=== PATIENT | male | born 2000 | race American Indian/Alaskan Native ===

== ENCOUNTER 2018-02-09 18:49 | Emergency (ER) | payer MEDICAID, OTHER ==
[2018-02-09 19:10] VITALS: BP 113/70
[2018-02-09] MEDS ORDERED: Acetaminophen/HYDROcodone 325-10 MG Tab PO ONE (20:30)
--- NOTE | 2018-02-09 20:34 | EDM.PDOC ---
ED HPI GENERAL MEDICAL PROBLEM - General Chief Complaint: Upper Extremity Injury/Pain Stated Complaint: possible fx finger. 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 [No Known Home Meds] 01/22/15 [History] Past Medical History - Past Health History Medical/Surgical History: Denies Medical/Surgical History Social & Family History - Tobacco Use Smoking Status *Q: Current Every Day Smoker Years of Tobacco use: 2 Packs/Tins Daily: 7 - Caffeine Use Caffeine Use: Reports: Soda - Recreational Drug Use Recreational Drug Use: No Review of Systems - Review of Systems Review Of Systems: ROS reveals no pertinent complaints other than HPI. ED EXAM, GENERAL - Physical Exam Exam: See Below Exam Limited By: No Limitations General Appearance: Alert, WD/WN, Mild Distress, Other (pain) Ears: Hearing Grossly Normal Throat/Mouth: Normal Voice, No Airway Compromise Head: Atraumatic Neck: Non-Tender, Full Range of Motion Respiratory/Chest: No Respiratory Distress Cardiovascular: Regular Rate, Rhythm GI/Abdominal: Soft, Non-Tender Extremities: Other (right 5th finger swollen mildly discoloured & bent, tender R /P, NV wnl. ) Neurological: Alert, Oriented, Normal Cognition, Normal Gait, No Motor/Sensory Deficits Psychiatric: Tearful Skin Exam: Warm, Dry, Normal Color Lymphatic: No Adenopathy Course - Vital Signs Last Recorded V/S: Last Vital Signs Temp 36.9 C 02/09/18 19:02 Pulse 80 02/09/18 19:02 Resp 19 02/09/18 19:02 BP 113/70 02/09/18 19:02 Pulse Ox 100 02/09/18 19:02 - Orders/Labs/Meds Orders: Active Orders 24 hr Category Date Time Status Acetaminophen/HYDROcodone [Pax[place] 325-10 MG] Med 02/09/18 20:30 Once 1 tab PO ONETIME ONE Departure - Departure Time of Disposition: 20:32 Disposition: Home, Self-Care 01 Condition: Good Clinical Impression: Finger fracture, right Qualifiers: Encounter type: initial encounter Finger: little finger Fracture type: closed Phalanx: proximal Fracture alignment: displaced Qualified Code(s): S62.616A - Displaced fracture of proximal phalanx of right little finger, initial encounter for closed fracture - Discharge Information Instructions: Finger Fracture, [id number] Referrals: PCP,None [Primary Care Provider] - Additional Instructions: 1) wear splint 2) ice to swelling intermittently 3) see clinic tomorrow for possible ORTHO REFERRAL for broken finger rx given; vicodin 5/325mg bid prn x 6 - My Orders Last 24 Hours: My Active Orders 02/09/18 20:30 Acetaminophen/HYDROcodone [Paxinos 325-10 MG] 1 tab PO ONETIME ONE - Assessment/Plan Last 24 Hours: My Active Orders 02/09/18 20:30 Acetaminophen/HYDROcodone [Paxinos 325-10 MG] 1 tab PO ONETIME ONE
== END 2018-02-09 20:37 | disposition home or self-care (01) ==
LOC: EEVIPCON 18:49 → DL.ED 18:49
DX: S62.616A Displaced fracture of proximal phalanx of right little finger, initial encounter for closed fracture (principal); F17.210 Nicotine dependence, cigarettes, uncomplicated; W22.8XXA Striking against or struck by other objects, initial encounter
CPT/HCPCS: 73140; 99283; A9270

== ENCOUNTER 2021-11-04 03:16 | Emergency (ER) | payer MEDICAID, OTHER ==
[2021-11-04 04:03] VITALS: BP 128/71; PULSE 118
== END 2021-11-04 04:16 | disposition home or self-care (01) ==
LOC: DL.ED 03:16
DX: R07.81 Pleurodynia (principal); Z20.822 Contact with and (suspected) exposure to COVID-19
CPT/HCPCS: 93005; 99284-25; U0002